=== PATIENT | male | born 1975 | race Caucasian/White ===

== ENCOUNTER → 2020-05-28 | Outpatient (CLI) | payer OTHER ==
--- NOTE | 2020-05-28 13:25 | RAD ---
EXAM: Left ankle, 3 views HISTORY: Sprain. COMPARISON: 05/21/2020 FINDINGS: 3 views of the left ankle are obtained. There has been no change in a mildly displaced medial malleolar fracture. There is a stable corticated ossicle inferior to the lateral malleolus, likely due to a chronic nonunited fracture fragment. There is soft tissue swelling. No osteochondral lesion is seen. IMPRESSION: No interval change in a mildly displaced medial malleolar fracture. There has been slight interval decrease in associated soft tissue swelling. Electronically signed by: Nisreen Marr MD (05/28/2020 1:21 PM) [id number]
== END ==
LOC: DXRAD 10:26
PROVIDERS: ATTEND Physician Assistant
DX: S82.52XD Displaced fracture of medial malleolus of left tibia, subsequent encounter for closed fracture with routine healing (principal); M79.89 Other specified soft tissue disorders; X58.XXXD Exposure to other specified factors, subsequent encounter
CPT/HCPCS: 73610

== ENCOUNTER → 2020-06-27 | Outpatient (CLI) | payer OTHER ==
--- NOTE | 2020-06-27 17:13 | RAD ---
EXAM: Left ankle, 3 views. HISTORY: Sprained ankle COMPARISON: 05/28/2020. FINDINGS: 3 views of the left ankle are obtained. There has been slight interval healing of a minimally displaced medial malleolar fracture, with associated surrounding callus formation and periosteal reaction. There is a chronic fracture involving the inferior tip of the lateral malleolus. The ankle mortise intact. There is no soft tissue edema. IMPRESSION: Slight interval healing of a minimally displaced medial malleolar fracture. Electronically signed by: Nisreen Marr MD (06/27/2020 5:10 PM) [facility]
== END | disposition home or self-care (01) ==
LOC: RAD 15:45
PROVIDERS: ATTEND Physician Assistant
DX: S82.842D Displaced bimalleolar fracture of left lower leg, subsequent encounter for closed fracture with routine healing (principal); W19.XXXD Unspecified fall, subsequent encounter; M25.772 Osteophyte, left ankle
CPT/HCPCS: 73610

== ENCOUNTER → 2020-07-27 | Outpatient (CLI) | payer OTHER ==
--- NOTE | 2020-07-27 12:15 | RAD ---
ANKLE LEFT 3V 07/27/2020 12:00 AM INDICATION: Left ankle sprain with history of fracture COMPARISON: Left ankle radiograph 201904/21/2020 TECHNIQUE: 3 views of the left ankle are provided. FINDINGS/ IMPRESSION: 1. There is continued osseous bridging involving a fracture involving the medial malleolus. However, there is increased soft tissue swelling along the medial ankle. Consideration may be given for ligamentous injury. 2. Similar degree of lateral soft tissue swelling. Tibial plafond and talar dome appear intact. No acute fractures identified. Electronically signed by: Camila Chin MD (07/27/2020 12:12 PM) [id number]
== END | disposition home or self-care (01) ==
LOC: DXRAD 10:09
PROVIDERS: ATTEND Physician Assistant
DX: S93.402D Sprain of unspecified ligament of left ankle, subsequent encounter (principal); M79.89 Other specified soft tissue disorders; X58.XXXD Exposure to other specified factors, subsequent encounter
CPT/HCPCS: 73610